=== PATIENT | male | born 1970 | race Caucasian/White ===

== ENCOUNTER 2020-04-01 13:58 | Emergency (ER) | payer SELFPAY ==
[~2020-04-01] VITALS: Ht 172.7 cm; Wt 72.6 kg
[2020-04-01 14:10] VITALS: BP_SYST 103
--- NOTE | 2020-04-01 14:16 | NUR ---
Patient triaged and placed in waiting room. VSS and patient appears in no acute distress at this time. Awaiting available bed, and MD notified of need for MSE.
--- NOTE | 2020-04-01 14:25 | NUR ---
Patient to ER bed 1 to gown for evaluation. Side rails up. Report given to GT Gorman.
--- NOTE | 2020-04-01 14:48 | NUR ---
Pt is alert and oriented. VSS
--- NOTE | 2020-04-01 15:39 | NUR ---
Pt in [place], side rails up. Denies any pain and VSS.
--- NOTE | 2020-04-01 16:36 | NUR ---
Pt continues to rest in [facility]. No distress noted. VSS
--- NOTE | 2020-04-01 17:00 | NUR ---
ER Dr. Diop at bedside examining patient.
--- NOTE | 2020-04-01 17:45 | NUR ---
Pt alert and oriented. Denies any pain or discomfort.
--- NOTE | 2020-04-01 17:48 | NUR ---
Patient ambulated to restroom with steady gait.
--- NOTE | 2020-04-01 17:58 | NUR ---
Patient given written and verbal discharge instructions and verbalizes understanding. ER MD discussed with patient the results and treatment provided. Patient in stable condition. ID arm band removed. Patient educated on pain management and to follow up with PMD. Pain Scale 0/10. Opportunity for questions provided and answered. Medication side effect fact sheet provided.
[2020-04-01 17:59] VITALS: BP_SYST 118
== END 2020-04-01 17:59 | disposition home or self-care (01) ==
LOC: SED 13:58
DX: R53.1 Weakness (principal); F10.229 Alcohol dependence with intoxication, unspecified; Z53.20 Procedure and treatment not carried out because of patient's decision for unspecified reasons
CPT/HCPCS: 82962; 99282